=== PATIENT | male | born 1960 | race African-American/Black ===

== ENCOUNTER 2021-10-01 13:49 | Emergency (ER) | payer OTHER ==
[2021-10-01 15:27] LABS: BASOPHIL 0.5 % (0-2); EOSINOPHIL 1.8 % (0-5); HCT 30.8 % (42.0-52.0); HGB 9.8 g/dl (13.2-18.0); LYMPHOCYTE 34.3 % (15-48); MCH 29.1 pg (25.0-31.0); MCHC 31.8 g/dL (32.0-36.0); MCV 91.4 fL (78.0-100.0); MONOCYTE 8.3 % (0-12); MPV 10.4 fL (6.0-9.5); NEUTROPHIL 54.8 % (41-80); NRBC 0; PLT 206 K/uL (150-400); RBC 3.37 M/uL (4.70-6.00); RDW 13.4 % (11.5-14.0); WBC 6.6 K/uL (4.0-10.5)
[2021-10-01 15:56] LABS: BUN/CREAT RATIO (CALC) 23.5 RATIO; CREATININE 0.98 mg/dL (0.67-1.17); POTASSIUM 4.8 mmol/L (3.5-5.1)
== END 2021-10-01 18:15 | disposition home or self-care (01) ==
LOC: FER 13:49
PROVIDERS: Nurse Practitioner Family
DX: K42.9 Umbilical hernia without obstruction or gangrene (principal)
CPT/HCPCS: 36415; 80048; 85025; Q9967